=== PATIENT | female | born 1980 | race Two or more races ===

== ENCOUNTER 2021-05-17 13:32 | Emergency (ER) | payer BC ==
[~2021-05-17] VITALS: Ht 157.5 cm; Wt 69.9 kg
[2021-05-17 14:00] VITALS: BP 138/70
[2021-05-17] MEDS ORDERED: ORPH100T2 PO (15:43)
== END 2021-05-17 15:51 | disposition home or self-care (01) ==
LOC: ER 13:32 → EEVIPCON 13:32 → ER 15:51
DX: M43.6 Torticollis (principal); F17.210 Nicotine dependence, cigarettes, uncomplicated
CPT/HCPCS: 99283